=== PATIENT | female | born 1935 | race Caucasian/White ===

== ENCOUNTER → 2016-09-11 | Outpatient (CLI) | payer OTHER ==
[~2016-09-11] MED LIST: BYSTOLIC 5 MG5 M1 PO; LIPITOR10 MG PO; METFORMIN HCL500 MG PO; OMEPRAZOLE20 M2 PO
== END ==
LOC: BC 08:12
DX: Z12.31 Encounter for screening mammogram for malignant neoplasm of breast (principal)

== ENCOUNTER → 2017-09-24 | Outpatient (CLI) | payer OTHER | LOC: RAD 00:14 | DX: Z12.31 Encounter for screening mammogram for malignant neoplasm of breast (principal) ==

== ENCOUNTER → 2018-10-03 | Outpatient (CLI) | payer OTHER | LOC: RAD 13:04 | DX: Z12.31 Encounter for screening mammogram for malignant neoplasm of breast (principal) ==

== ENCOUNTER 2019-08-04 23:32 | Inpatient (IN) | payer OTHER ==
[~2019-08-04] VITALS: Ht 162.6 cm; Wt 55.3 kg
[2019-08-04 23:34] VITALS: BP 156/67
[2019-08-04] MEDS ORDERED: FAMOTIDINE 20 M20 MG PO (23:58)
[2019-08-05] VITALS (9 sets, daily range): BP systolic 113–149; BP diastolic 59–69
[2019-08-05 00:37] LABS: ANION GAP 11 mmol/L (7-16); BUN 23 mg/dL (7-18); CALCIUM 8.9 mg/dL (8.5-10.1); CHLORIDE 99 mmol/L (98-107); CO2 27 mmol/L (21-32); CREATININE 1.2 mg/dL (0.6-1.0); GLUCOSE 145 mg/dL (74-106); MCH 36.1 pg (26.0-34.0); MCHC 32.6 g/dL (28.0-37.0); MCV 110.7 fL (80.0-100.0); PLATELET COUNT 217 thou/uL (150-400); POTASSIUM 3.4 mmol/L (3.5-5.1); RBC 1.54 mil/uL (4.20-5.00); RDW 17.2 % (10.5-14.5); SODIUM 137 mmol/L (136-145); WBC 4.2 thou/uL (4.0-11.0)
[2019-08-05 00:42] LABS: HEMATOCRIT 17.1 % (37.0-47.0); HEMOGLOBIN 5.6 gm/dL (12.0-15.0)
[2019-08-05 00:47] LABS: ALBUMIN 3.7 g/dL (3.4-5.0); SGOT 32 U/L (15-37); SGPT 43 U/L (30-65); TOTAL BILIRUBIN 2.7 mg/dL (<0.1-1.0); TOTAL PROTEIN 6.7 g/dL (6.4-8.2); TROPONIN-I <0.06 ng/mL (<0.06)
[2019-08-05 00:49] LABS: PROTIME 10.7 Seconds (9.3-11.4)
[2019-08-05 01:29] LABS: ABSOLUTE NEUTROPHILS 2.3 thou/uL (1.4-8.2)
[2019-08-05 01:31] LABS: ANISOCYTOSIS 1+; PLATELET ESTIMATE NORMAL; POIKILOCYTOSIS 1+; POLYCHROMASIA 2+
[2019-08-05 01:32] LABS: MACROCYTES 3+
[2019-08-05 02:03] LABS: % SATURATION 38 % (20-39); IRON 98 ug/dL (50-170); TIBC 258 ug/dL (250-450)
[2019-08-05 02:05] LABS: DIRECT BILIRUBIN 0.5 mg/dL (<0.1-0.2); TOTAL BILIRUBIN 2.4 mg/dL (<0.1-1.0)
--- NOTE | 2019-08-05 04:12 | NUR ---
PT ADMITTED THIS MORNING WITH LOW HGB. BLOOD TRANSFUSION STARTED IN THE ER. PT ALERT AND ORIENTED. AND GRAND DAUGHTER IN COMPANY. ADMISSION COMPLETED. PT ORIENTED TO ROOM. CONSENT FORMS SIGNED. ORDERS ACKNOWLEDGED, PT DOES NOT APPEAR TO BE IN ANY DISTRESS. DENIES CHEST PAIN, SOB OR CHEST PALPITATIONS. WILL CONTINUE TO MONITOR CURRENT BLOOD TRANSFUSION, AND FOLOW CARE ACCORDINGLY.
[2019-08-05 10:35] LABS: HEMATOCRIT 27.2 % (37.0-47.0)
--- NOTE | 2019-08-05 15:39 | NUR ---
Met with patient and family at bedside. Patient resides in independent home with spouse, granddtr her and 3 grandchildren ages 9,5 and 4. Patient assisted with babysitting. She is independent with adls and self care. She has no hx of DME or HH care. Plan home independently [place]. PCP Dr Burgess. Casemgt following if needs arise.
--- NOTE | 2019-08-05 16:26 | NUR ---
PT CARE ASSUMED APPROX 0700. ASSESSMENT CHARTED. PT DENIES PAIN AND SOA. VSS. UP WITH SBA. STEADY GAIT. PT COMPLETED PROCEDURE WITHOUT ISSUE. PT AND FAMILY DENY QUESTIONS OR CONCERNS REGARDING POC. PT TOLERATING POC. NO DISTRESS NOTED.
--- NOTE | 2019-08-06 03:10 | NUR ---
PATIENT ASSESSED AND IS ALERT X 4. SKIN WARM AND DRY. RESP EVEN AND UNLABORED. DENIES ANY PAIN. TELE- SHOWS NSR. PP 2/2. NO EDEMA NOTED TO LOWER EXTREMITIES. LUNGS CTA. RIGHT AC FLUSHES WELL. TAKEN REGULAR DIET WELL. HAD RECEIVED 2 UNITS OF BLOOD. UP IN ROOM VOIDING WELL. NO BLEEDING NOTED FROM POLUPECTOMY. CONT PLAN OF CARE. DENIES ANY NEEDS. SLEPT WELL LAST NIGHT.CONT PLAN OF CARE.
[2019-08-06 04:40] VITALS: BP 123/66
--- NOTE | 2019-08-06 05:13 | P ---
[facility] [place] [address] PROCEDURE REPORT Name: GREY DOWNING Room #: 202-P [facility] IN M.R.#: [id number] Admission: 08/05/19 Attend Phys: Santy Burgess MD Discharge: Date of : 31 Report #: [id number] THIS REPORT FOR: cc: Santy Burgess MD, Neal A. MD Graessle, Donna M. DO ~ CC: Santy Jane MD DATE OF SERVICE: 08/05/2019 PROCEDURE: EGD with snare polypectomy. She is a patient of Dr. Santy Burgess. INDICATION FOR PROCEDURE: This patient has severe anemia that is macrocytic. Her hemoglobin was 5.4, MCV was 110, her iron levels are normal. Her B12, folic acid, and TSH levels are normal. So the etiology of this macrocytic anemia is not clear. So EGD is being performed to evaluate for possible acute gastrointestinal blood loss, though she denies seeing any hematemesis, hematochezia or melena. Informed consent for this procedure was obtained prior to the administration of any medication. The risks of the procedure, which include bleeding, perforation, infection, complications of sedation and the possibility I could miss something have been explained to the patient and she has indicated her consent by signing. Propofol was slowly titrated before and during this procedure for patient comfort by the anesthesia service. With the patient in the left lateral decubitus position, the Olympus upper videoscope was introduced through the upper esophageal sphincter and advanced under direct visualization to the third portion of the duodenum. Findings are noted on withdrawal of the scope. The duodenal mucosa appears normal throughout its entirety. Pylorus, normal mucosa. Antrum, normal mucosa. In the body, cardia and the fundus of the stomach, there were multiple polyps noted, one of them appears to be infarcted and is black colored. I did remove that polyp with a snare and recovered it with a [place] net and sent it to the pathology lab. Good hemostasis was noted after that polypectomy. I did not see any other source of blood loss in the upper GI tract and I saw no active bleeding or blood in this area. The scope was withdrawn into the esophagus. The Z-line is appropriately located at the top of the gastric folds and appears normal. The esophageal mucosa appears normal throughout its entirety. The scope was withdrawn. The patient went to the recovery area in stable condition. She tolerated the [address] [address] PROCEDURE REPORT Name: GREY DOWNING Room #: 202-P [facility] IN .R.#: [id number] Admission: 08/05/19 Attend Phys: Santy Burgess MD Discharge: Date of : 31 Report #: [id number] procedure well. IMPRESSION: 1. Multiple gastric polyps thought to be secondary to proton pump inhibitor use in the past week. 2. One infarcted gastric polyp removed as above and sent to pathology lab. Other than that, normal esophagus and duodenum to the depth of insertion of the scope. RECOMMENDATIONS: My recommendations were to await the path report, I do not think that this was an acute gastrointestinal blood loss anemia because of her history of no hematemesis, hematochezia, or melena. She has a normal B12, folic acid, and TSH level. I do not believe that she is an alcohol consumer to any great extent. Therefore, the etiology of the severe macrocytic anemia is not clear. I have recommended a Hematology consult and I have put a consult in for Dr. Jane as this patient could have some bone marrow dyscrasia. Thank you very much once again for allowing me to participate in her care, Dr. Burgess. <ELECTRONICALLY SIGNED> By: Samanta Covington DO 08/06/19 0513 1314 [id number] Samanta Covington DO /nt
[2019-08-06 07:30] VITALS: BP 127/64
[2019-08-06 10:38] LABS: URINE BILIRUBIN NEGATIVE (Negative); URINE BLOOD NEGATIVE (Negative); URINE CLARITY CLEAR; URINE COLOR YELLOW; URINE GLUCOSE-RANDOM* NEGATIVE (Negative); URINE KETONES NEGATIVE (Negative); URINE LEUKOCYTES NEGATIVE (Negative); URINE NITRITE NEGATIVE (Negative); URINE PROTEIN (DIPSTICK) NEGATIVE (Negative); URINE SPECIFIC GRAVITY <= 1.005 (1.005-1.035); URINE UROBILINOGEN 0.2 E.U./dl (0.2-1.0)
[2019-08-06 11:03] LABS: ABSOLUTE RETIC COUNT 0.3737 10^6/uL; HEMATOCRIT 24.8 % (37.0-47.0); HEMOGLOBIN 8.2 gm/dL (12.0-15.0); MCH 33.6 pg (26.0-34.0); MCHC 32.9 g/dL (28.0-37.0); OBSERVED RETIC COUNT 15.37 % (0.6-2.6); PLATELET COUNT 187 thou/uL (150-400); RBC 2.43 mil/uL (4.20-5.00); RDW 20.7 % (10.5-14.5); WBC 4.4 thou/uL (4.0-11.0)
[2019-08-06 11:04] LABS: MCV 102.2 fL (80.0-100.0)
[2019-08-06 11:26] LABS: ABSOLUTE NEUTROPHILS 2.8 thou/uL (1.4-8.2); ANISOCYTOSIS 2+; MACROCYTES 1+
[2019-08-06 11:28] LABS: POLYCHROMASIA SLIGHT
[2019-08-06 13:00] VITALS: BP 113/48
[2019-08-06] MEDS ORDERED: CIPRO250 M1 PO (15:10)
[2019-08-06 15:13] VITALS: BP 127/64
--- NOTE | 2019-08-06 16:07 | PATH ---
[facility] [address] [place] [address] PATHOLOGY RPT PROCEDURE Name: GREY HAM Room #: 202-P [facility] IN M.R.#: [id number] Admission: 08/05/19 Date of : 31 Discharge: Report #: [id number] Path Case #: [id number] [facility] Accession Number: [id number] . 01 Material submitted: . stomach - INFARCTED GASTRIC POLYP . 01 Clinical history: . Anemia . 02 Diagnosis: Polyp, infarcted gastric polyp, excision: - Benign fundic gland polyp associated with marked congestion. - Negative for dysplasia or malignancy. (IUV/db; 08/06/2019) LBQ 08/06/2019 1354 Local . 02 Electronically signed: . Fawn Crenshaw MD, Pathologist NPI- [id number] . 01 Gross description: . The specimen is received in formalin, labeled "Grey Ham, infarcted gastric polyp". Received is a polypoid segment of red-brown soft tissue measuring 1.8 x 1.4 x 1.2 cm in greatest dimensions. The surgical margin is inked. The specimen is trisected perpendicular to the margin and entirely submitted in cassettes A1 through A3. (CAA; 08/05/2019) QAC/QAC 08/05/2019 1736 Local . 02 Pathologist provided ICD-10: K31.7 . 02 CPT . 717898 Specimen Comment: A courtesy copy of this report has been sent to [phone] Specimen Comment: Report sent to Performed at: [address], [place], [place] [id number] MD Joshua Pollock MD Phone: [phone] Performed at: [address] [id number] MD Fawn Crenshaw MD Phone: [phone]
--- NOTE | 2019-08-07 09:03 | EKG ---
[facility] [place] [address] ELECTROCARDIOGRAM REPORT Name: GREY DOWNING Room #: 202-P [facility] IN M.R.#: [id number] Admission: 08/05/19 Attend Phys: Santy Burgess MD Discharge: 08/06/19 Date of : 31 Report #: [id number] THIS REPORT FOR: cc: Santy Burgess MD, Neal A. MD Lundgren, Craig H. 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 : 1935 Requested By: Santy Burgess Order Number: [id number] MD: Neel Mays Measurements Intervals [place] Rate: 117 P: 69 MS: 154 QRS: -15 QRSD: 85 T: 51 QT: 322 QTc: 450 Interpretive Statements Sinus tachycardia Borderline left axis deviation Minimal ST depression, lateral leads Compared to ECG 03/25/2012 12:00:01 ST (T wave) deviation now present Electronically Signed On 08-07-2019 9:02:51 [employer] by Neel Mays [email or web address] <ELECTRONICALLY SIGNED> By: Neel Mays MD, FACC 08/07/19 [phone] 40 Neel Mays MD, FACC /EPI
[2019-08-07 10:09] LABS: HEMOGLOBIN 4.8 g/dL (11.1-15.9)
--- NOTE | 2019-08-09 16:26 | HC ---
[facility] [place] [address] CONSULTATION Name: GREY DOWNING Room #: 202-P [facility] IN ..#: [id number] Admission: 08/05/19 Attend Phys: Santy Burgess MD Discharge: 08/06/19 Date of : 31 Report #: [id number] THIS REPORT FOR: cc: Santy Burgess MD, Neal A. MD McKittrick, Richard James MD ~ CC: Samanta Bernabe MD DATE OF SERVICE: 08/06/2019 REASON FOR CONSULTATION: Macrocytic anemia. HISTORY OF PRESENT ILLNESS: The patient is an 84-year-old female who has several weeks of feeling short of breath and more fatigued. Also on further questioning, she thought maybe her urine have a little bit dark but slightly oranges colored during the last several weeks. She denies any headache, fevers, chills, mouth sores. Denies any coughing, rash, blood in urine or stool, maybe some slight ankle swelling. PAST MEDICAL HISTORY: Notable for history of hypertension, diabetes mellitus, GERD, dyslipidemia, polyps in her stomach, cataract surgery. 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 FAMILY HISTORY: Notable for about 6 family members with colon cancer, if I understand right. It sounds like she had seen someone ____ who could not find a reason why she had so many polyps and at that time multiple fundic gland polyps were seen. MEDICATIONS: At this time in the hospital include ciprofloxacin 250 b.i.d., metronidazole 500 t.i.d. and pantoprazole 40 b.i.d. Note that I think as an outpatient, she had been on several other medications including metformin, omeprazole, famotidine and atorvastatin and maybe Bystolic in the past. PHYSICAL EXAMINATION: GENERAL: The patient appears her stated age. VITAL SIGNS: Height is 5 feet 4 inches, 162.6 cm. Weight is 122 pounds 5 ounces or 55.6 kilograms. Blood pressure is 123/66, O2 sat 93%, respirations 18, pulse 92, temperature 98. HEENT: Oropharynx clear. MOOD: Pleasant and conversant. NEUROLOGIC: Speech and thought pattern are normal. Moving arms and extremities appropriately. [address] [address] CONSULTATION Name: GREY DOWNING Room #: 202-P [facility] IN M.R.#: [id number] Admission: 08/05/19 Attend Phys: Santy Burgess MD Discharge: 08/06/19 Date of : 31 Report #: [id number] LUNGS: Clear, without rhonchi. They are symmetric and unlabored. HEART: Regular rate. LYMPHATICS: No enlarged lymph nodes in the supraclavicular, cervical, axillary or inguinal region. ABDOMEN: Soft, no masses. EXTREMITIES: Without clubbing, cyanosis or edema. LABORATORY DATA: Here notable for BUN of 23, creatinine 1.2, total bilirubin 2.4, direct bilirubin 0.5. Transaminases are normal. Total protein is 6.7, albumin 3.7. LDH was 235, slightly elevated. Iron panel, iron 98, TIBC ____, iron saturation 38%. INR 1.0, fibrinogen 209.3 barely low, white count 4.2, hemoglobin on admit was 5.6 with initial MCV of 110.7, hematocrit was 17.1 yesterday. She received 2 units of blood. It is now hemoglobin is 9, RDW 17.2, platelets 217. Differential is unremarkable. I did mention anisocytosis polychromasia and macrocytic and poikilocytosis and some basophilic stippling. Note that retic count on pre-transfusion blood have been ordered. Also, peripheral smear review is pending. Haptoglobin was less than 10. TSH is normal at 3.3. Folate is normal at 24.2. B12, 649 normal. Gastrin pending. IMAGING: The patient had a CT abdomen and pelvis, was a small hiatal hernia, gastric wall thickening. No hepatosplenomegaly, adenopathy or abscess or free air. ASSESSMENT AND PLAN: 1. Macrocytic anemia, maybe component of resolving hemolysis. So, I note that on transfusion, they had no trouble managing the blood. LDH was not that high, bilirubin was a little bit high. Haptoglobin is low. We will check a hemosiderin and UA. We will also because of possible potential for bone marrow disorder such as Suyapa negatives and macrocytic. We will do a bone marrow biopsy today. Discussed with the patient and family. They are agreeable. We will plan to follow up outpatient. She will also likely benefit from serial blood counts follow her hemoglobin. 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 2. Diabetes. Defer to others. 3. Hypertension. Defer to others. 4. Hyperlipidemia. Defer to others. 5. Macular degeneration. Defer to others. 6. Family history of colon cancer, pancreatic gastric cancer and personal history of gastric fundic polyps. Defer to GI. We will follow with you. <ELECTRONICALLY SIGNED> By: Haresh Jane MD 08/09/19 1626 0831 08 Haresh Jane MD /osito
== END 2019-08-06 16:25 | disposition home or self-care (01) | DRG 393 ==
LOC: ER 23:32 → 2N 08-05 02:12 → EROBS 08-05 02:12 → 2N 08-05 02:39 → ENTRNSPT 08-06 16:06 → 2N 08-06 16:25
PROVIDERS: Emergency Medicine Emergency Medical Services; Internal Medicine Hematology & Oncology; Nurse Practitioner; ADMIT Family Medicine
DX: K31.7 Polyp of stomach and duodenum (principal); K57.93 Diverticulitis of intestine, part unspecified, without perforation or abscess with bleeding; K92.1 Melena; D64.9 Anemia, unspecified; E78.00 Pure hypercholesterolemia, unspecified; E11.9 Type 2 diabetes mellitus without complications; I10 Essential (primary) hypertension; K21.9 Gastro-esophageal reflux disease without esophagitis; R00.0 Tachycardia, unspecified; E78.5 Hyperlipidemia, unspecified; H35.30 Unspecified macular degeneration; K44.9 Diaphragmatic hernia without obstruction or gangrene; Z86.010 Personal history of colon polyps; Z91.81 History of falling; Z98.49 Cataract extraction status, unspecified eye; Z80.0 Family history of malignant neoplasm of digestive organs; Z79.84 Long term (current) use of oral hypoglycemic drugs; Z79.899 Other long term (current) drug therapy
CPT/HCPCS: 10081; 70005

== ENCOUNTER → 2019-08-20 | Outpatient (CLI) | payer OTHER ==
[~2019-08-20] MED LIST changes: +CIPRO250 M1 PO; +FAMOTIDINE 20 M20 MG PO
[2019-08-20 14:28] VITALS: BP 114/48; BP 95/39
--- NOTE | 2019-08-20 17:09 | NUR ---
IN FOR BLOOD TRANSFUSION 1 UNIT FOR HGB 6.8. TRANSFUSED 1 UNIT RBC'S AND TOLERATED WELL WITH NO SIGNS OR SYMPTOMS OF TRANSFUSION REACTION NOTED. REMOVED IV AND DISMISSED IN STABLE CONDITION.
== END ==
LOC: OPONC 12:01
DX: D50.9 Iron deficiency anemia, unspecified (principal)
CPT/HCPCS: 91030

== ENCOUNTER → 2019-11-10 | Outpatient (CLI) | payer OTHER | LOC: SJCVCIMAG 07:24 | DX: I35.8 Other nonrheumatic aortic valve disorders (principal); E11.9 Type 2 diabetes mellitus without complications ==

== ENCOUNTER → 2019-12-01 | Outpatient (CLI) | payer OTHER | LOC: BC 08:30 → EDSTATUS 10:08 | PROVIDERS: ATTEND Family Medicine | DX: Z12.31 Encounter for screening mammogram for malignant neoplasm of breast (principal) ==

== ENCOUNTER → 2020-12-26 | Outpatient (CLI) | payer OTHER | LOC: RAD 13:07 | PROVIDERS: ATTEND Family Medicine | DX: Z12.31 Encounter for screening mammogram for malignant neoplasm of breast (principal) ==